=== PATIENT | female | born 1965 | race Caucasian/White ===

== ENCOUNTER 2019-06-28 16:32 | Emergency (ER) | payer BC ==
--- NOTE | 2019-06-28 17:11 | EDM.PDOC ---
ED HPI GENERAL MEDICAL PROBLEM - General Chief Complaint: Respiratory Problem Stated Complaint: COUGH,CONGESTION Time Seen by Provider: 06/28/19 17:11 Source of Information: Reports: Patient History Limitations: Reports: No Limitations - History of Present Illness INITIAL COMMENTS - FREE TEXT/NARRATIVE: HISTORY AND PHYSICAL: History of present illness: Patient is a 54-year-old female presents to the ED with complaint of cough and congestion x 4 days. She denies fevers, chills, nausea, vomiting, abdominal pain , diarrhea, chest pain. She reports some shortness of breath on occasional. She denies significant past medical history. Review of systems: As per history of present illness and below otherwise all systems reviewed and negative. Past medical history: As per history of present illness and as reviewed below otherwise noncontributory. Surgical history: As per history of present illness and as reviewed below otherwise noncontributory. Social history: No reported history of drug or alcohol abuse. Family history: As per history of present illness and as reviewed below otherwise noncontributory. Physical exam: General: Patient sitting comfortably in no acute distress and nontoxic appearing HEENT: Atraumatic, normocephalic, pupils reactive, negative for conjunctival pallor or scleral icterus, mucous membranes moist, throat clear, neck supple, nontender, trachea midline. No meningeal signs. Lungs: Mild wheezing throughout all lung dias. Clear to auscultation, breath sounds equal bilaterally, chest nontender. Heart: S1S2, regular, negative for clicks, rubs, or overt murmur. Abdomen: Soft, nondistended, nontender. Negative for masses or hepatosplenomegaly. Negative for costovertebral tenderness. No rigidity, rebound , guarding. Pelvis: Stable nontender. Genitourinary: Deferred. Rectal: Deferred. Extremities: Atraumatic, negative for cords or calf pain. Neurovascular unremarkable. Neuro: Awake, alert, oriented. Cranial nerves II through XII unremarkable. Cerebellum unremarkable. Motor and sensory unremarkable throughout. Exam nonfocal. Notes: Diagnostics: influenza, CXR Therapeutics: none Prescriptions: Ventolin inhaler Impression: Acute bronchitis Plan: Use inhaler as instructed Follow up with primary care provider Return to ED as needed as discussed Definitive disposition and diagnosis as appropriate pending reevaluation and review of above. - Related Data Allergies Allergy/AdvReac Type Severity Reaction Status Date / Time No Known Allergies Allergy Verified 06/28/19 16:46 Home Meds: Home Meds Albuterol [Ventolin HFA] 1 puff INH Q4H #1 inhaler 06/28/19 [Rx] Sertraline HCl [Zoloft] 50 mg PO DAILY 06/28/19 [History] Past Medical History - Past Health History Medical/Surgical History: Denies Medical/Surgical History Dermatologic History: Reports: Melanoma Other Dermatologic History: Removal of lesion above right knee and right thigh area lymph system. Positive Melanoma - Past Surgical History Dermatological Surgical History: Reports: Skin Biopsy Social & Family History - Family History Family Medical History: Noncontributory - Tobacco Use Smoking Status *Q: Never Smoker - Recreational Drug Use Recreational Drug Use: No ED ROS GENERAL - Review of Systems Review Of Systems: Comprehensive ROS is negative, except as noted in HPI. ED EXAM, GENERAL - Physical Exam Exam: See Below (see dictation) Course - Vital Signs Last Recorded V/S: Last Vital Signs Temp 97.4 F 06/28/19 16:44 Pulse 79 06/28/19 16:44 Resp 16 06/28/19 16:44 BP 178/84 H 06/28/19 16:49 Pulse Ox 96 06/28/19 16:44 Departure - Departure Time of Disposition: 17:58 Disposition: Home, Self-Care 01 Condition: Good Clinical Impression: Acute bronchitis - Discharge Information Prescriptions: Albuterol [Ventolin HFA] 1 puff INH Q4H #1 inhaler Referrals: Ratna Thomas NP [Primary Care Provider] - Forms: ED Department Discharge Additional Instructions: The following information is given to patients seen in the emergency department who are being discharged to home. This information is to outline your options for follow-up care. We provide all patients seen in our emergency department with a follow-up referral. The need for follow-up, as well as the timing and circumstances, are variable depending upon the specifics of your emergency department visit. If you don't have a primary care physician on staff, we will provide you with a referral. We always advise you to contact your personal physician following an emergency department visit to inform them of the circumstance of the visit and for follow-up with them and/or the need for any referrals to a consulting specialist. The emergency department will also refer you to a specialist when appropriate. This referral assures that you have the opportunity for follow-up care with a specialist. All of these measure are taken in an effort to provide you with optimal care, which includes your follow-up. Under all circumstances we always encourage you to contact your private physician who remains a resource for coordinating your care. When calling for follow-up care, please make the office aware that this follow-up is from your recent emergency room visit. If for any reason you are refused follow-up, please contact the [facility] Emergency Department at and asked to speak to the emergency department charge nurse. [facility] [address] [place] [id number] [facility] [address] [place] [id number] Use inhaler as instructed Follow up with primary care provider Return to ED As needed as discussed Sepsis Event Note - Evaluation Sepsis Screening Result: No Definite Risk - Focused Exam Vital Signs: Vital Signs Temp Pulse Resp BP Pulse Ox 06/28/19 16:49 178/84 H 06/28/19 16:44 97.4 F 79 16 209/72 H 96 Date Exam was Performed: 06/28/19 Time Exam was Performed: 18:01
--- NOTE | 2019-06-28 17:52 | CR ---
Chest: 2 views of the chest were obtained. Comparison: No previous chest x-ray is available. Heart size and mediastinum are normal. Lungs are clear. Bony structures appear within normal limits for the patient's age. Impression: 1. Nothing acute is appreciated on 2 view chest x-ray. Diagnostic code #1 This report was dictated in [place] Standard Time
[2019-06-28 18:17] VITALS: BP 168/97; PULSE 77
== END 2019-06-28 18:17 | disposition home or self-care (01) ==
LOC: MW.ED 16:32
DX: J20.9 Acute bronchitis, unspecified (principal)
CPT/HCPCS: 71046; 71046-26; 87804; 99283; 99283-25

== ENCOUNTER 2022-02-22 14:10 | Emergency (ER) | payer BC ==
[2022-02-22 15:21] VITALS: BP 160/67; PULSE 62
== END 2022-02-22 15:13 | disposition home or self-care (01) ==
LOC: MW.ED 14:10
DX: G62.9 Polyneuropathy, unspecified (principal)
CPT/HCPCS: 93971-26-LT; 93971-LT; 99283

== ENCOUNTER 2023-06-12 08:07 | Emergency (ER) | payer BC ==
[2023-06-12 08:28] LABS: BASOPHILS ABSOLUTE AUTO 0.05 K/uL (0.00-0.20); BASOPHILS PERCENT AUTO 0.5 % (0.0-1.0); EOSINOPHILS ABSOLUTE AUTO 0.25 K/uL (0.00-0.45); EOSINOPHILS PERCENT AUTO 2.3 % (0.0-6.0); HEMATOCRIT 43.7 % (37.0-47.0); IMMATURE GRAN ABSOLUTE AUTO 0.03 K/uL (0.00-0.05); IMMATURE GRAN PERCENT AUTO 0.3 % (0.0-0.4); LYMPHOCYTES ABSOLUTE AUTO 2.72 K/uL (1.00-4.80); MEAN CORPUSCULAR HEMOGLOBIN 30.3 pg (28.0-32.0); MEAN CORPUSCULAR HGB CONC 34.3 g/dL (32.0-36.0); MEAN CORPUSCULAR VOLUME 88.3 fL (83.0-99.0); MEAN PLATELET VOLUME 10.1 fL (9.4-12.3); MONOCYTES ABSOLUTE AUTO 0.68 K/uL (0.00-0.80); MONOCYTES PERCENT AUTO 6.3 % (0.0-8.0); NEUTROPHILS ABSOLUTE AUTO 7.14 K/uL (1.80-7.70); NEUTROPHILS PERCENT AUTO 65.6 % (41.0-71.0); PLATELET COUNT,PLT 251 K/uL (150-400); RED BLOOD CELL COUNT 4.95 M/uL (4.10-5.30); WHITE BLOOD CELL COUNT,WBC 10.87 K/uL (3.9-11.3)
[2023-06-12] MEDS ORDERED: Aspirin 81 MG Tab.Chew PO ONE (08:36)
[2023-06-12] MEDS ORDERED: Alum Hydro/Mag Hydro/Simeth XS 15 ML, Lidocaine 2% 5 ML PO ONE ×2 (08:36)
[2023-06-12 08:47] LABS: INR 1.01 (0.86-1.11); PTT,PARTIAL THROMBOPLSTIN TIME 27.6 SEC (23.9-30.7)
[2023-06-12 08:55] LABS: A/G RATIO 1.1 (0.9-1.6); ALBUMIN 3.8 g/dL (3.4-5.0); BILIRUBIN TOTAL 0.3 mg/dL (0.2-1.0); CALCIUM 9.1 mg/dL (8.5-10.1); CARBON DIOXIDE,CO2 25.9 mmol/L (21.0-32.0); CREATININE 0.9 mg/dL (0.6-1.0); EST CRCL DRUG DOSING (CG) 48.34 mL/min; POTASSIUM,K 4.1 mmol/L (3.5-5.1); PROTEIN TOTAL,TP 7.3 g/dL (6.4-8.2)
[2023-06-12] MEDS: Nitroglycerin 0.4 MG Tab.SL SL PRN ×2 (09:04→09:33)
[2023-06-12] MEDS ORDERED: Enoxaparin 100 MG/1 ML Syringe SUBCUT STA (09:18)
[2023-06-12 10:33] VITALS: BP 146/69; PULSE 51
== END 2023-06-12 10:33 ==
LOC: MW.ED 08:07
DX: I21.4 Non-ST elevation (NSTEMI) myocardial infarction (principal); Z79.899 Other long term (current) drug therapy
CPT/HCPCS: 36415; 71045; 80053; 84484; 85025; 85610; 85730; 93005; 96372; 99285; A9270; J1650

== ENCOUNTER 2023-08-15 19:23 | Emergency (ER) | payer BC ==
[2023-08-15 22:24] VITALS: BP 182/67; PULSE 56
== END 2023-08-15 22:24 | disposition home or self-care (01) ==
LOC: MW.ED 19:23
DX: S80.12XA Contusion of left lower leg, initial encounter (principal); Z79.899 Other long term (current) drug therapy; W19.XXXA Unspecified fall, initial encounter
CPT/HCPCS: 73590-26-LT; 73590-LT; 99282; 99283